=== PATIENT | male | born 1955 | race Caucasian/White ===

== ENCOUNTER 2017-02-06 12:04 | Inpatient (IN) | payer BC ==
[2017-02-06 12:34] LABS: HEMOGLOBIN 15.2 gm/dl (14.0-17.5); RED BLOOD COUNT 5.3 M/UL (4.20-5.50); WHITE BLOOD COUNT 10.6 K/UL (4.5-11.0)
[2017-02-07] MEDS ORDERED: LISINOPRIL-HCT1 EAC2 PO (01:44)
[2017-02-07 04:29] LABS: HEMOGLOBIN 14.2 gm/dl (14.0-17.5); RED BLOOD COUNT 5.01 M/UL (4.20-5.50); WHITE BLOOD COUNT 8.2 K/UL (4.5-11.0)
[2017-02-07 05:00] LABS: BUN/CREATININE RATIO 18 (0-10)
[2017-02-07] MEDS ORDERED: ASPIRIN EC81 MG PO (18:19)
[2017-02-07] MEDS ORDERED: LIPITOR TAB 2020 MG PO ×2 (18:20→18:21)
[2017-02-07] MEDS ORDERED: PRINIVIL5 MG PO (18:22)
[2017-02-07] MEDS ORDERED: IMDUR ER TAB 3030 MG PO (18:22)
[2017-02-07] MEDS ORDERED: LOPRESSOR 25 MG25 MG PO (18:24)
== END 2017-02-07 20:30 | disposition home or self-care (01) | DRG 282 ==
LOC: ER1 12:04 → CCU 14:10 → ZEROF 14:10 → CCU 02-07 01:27
PROVIDERS: Emergency Medicine; ADMIT Internal Medicine Infectious Disease
PROC: 4A023N7 Measurement of Cardiac Sampling and Pressure, Left Heart, Percutaneous Approach (ICD-10-PCS; principal; 2017-02-07)
PROC: B2111ZZ Fluoroscopy of Multiple Coronary Arteries using Low Osmolar Contrast (ICD-10-PCS; 2017-02-07)
PROC: B3101ZZ Fluoroscopy of Thoracic Aorta using Low Osmolar Contrast (ICD-10-PCS; 2017-02-07)
DX: I21.4 Non-ST elevation (NSTEMI) myocardial infarction (principal); I10 Essential (primary) hypertension; K21.9 Gastro-esophageal reflux disease without esophagitis; E66.9 Obesity, unspecified; I44.4 Left anterior fascicular block; I25.10 Atherosclerotic heart disease of native coronary artery without angina pectoris; R74.9 Abnormal serum enzyme level, unspecified; Z82.49 Family history of ischemic heart disease and other diseases of the circulatory system; Z68.37 Body mass index [BMI] 37.0-37.9, adult
CPT/HCPCS: 36415; 71010; 80053; 80061; 82550; 82553; 82570; 83690; 83735; 83874; 84156; 84439; 84443; 84484; 85025; 85027; 85610; 85730; 93005; 96374; 99285; C1769; C1887; J1644; J1650; J2250; J3010; J7030; Q2039; Q9963

== ENCOUNTER → 2017-02-23 | Outpatient (CLI) | payer BC ==
[~2017-02-23] MED LIST: ASPIRIN EC81 MG PO; IMDUR ER TAB 3030 MG PO; LIPITOR TAB 2020 MG PO; LISINOPRIL-HCT1 EAC2 PO; LOPRESSOR 25 MG25 MG PO; PRINIVIL5 MG PO
== END ==
LOC: HEART 5 07:45
DX: I22.9 Subsequent ST elevation (STEMI) myocardial infarction of unspecified site (principal); I10 Essential (primary) hypertension
CPT/HCPCS: 78452; A9502; J2785